=== PATIENT | female | born 1945 | race Caucasian/White ===

== ENCOUNTER 2021-01-18 20:03 | Observation (INO) ==
[2021-01-18] MEDS ORDERED: SODIUM CHLORIDE 0.9% 1000ML 1,000 ML IV ONE (20:21)
[2021-01-18] MEDS ORDERED: CEFEPIME 2,000 MG/20 ML VIAL IV STA (20:21)
--- NOTE | 2021-01-18 20:26 | Emergency Department Note ---
History of Present Illness General Chief complaint: Fever Stated complaint: FEVER Time Seen by Provider: 01/18/21 20:11 Source: patient and family ( who is at the bedside) Mode of arrival: ambulatory Limitations: no limitations History of Present Illness Maximum Pain Intensity: 5 This patient is a 75-year-old female who comes in after having a high temperature up to 103 at home. She was seen at an urgent care center and sent here. Her temperature had come down without treatment to 101 at the urgent care center. She denies dysuria but she had some frequency and bilateral lower abdominal pain and left flank pain. No nausea or vomiting. No cough or shortness of breath. No chest pain. Minimal headache. No fall or trauma no rash she is on no blood thinner she had Covid vaccine x2. No lower extremity pain or swelling. Home Medications Medication Instructions Recorded Confirmed Type amlodipine 2.5 mg PO DAILY 09/09/19 01/18/21 History aspirin 81 mg PO DAILY 09/09/19 01/18/21 History atenolol 25 mg PO DAILY 09/09/19 01/18/21 History estradiol 2 g VAGINAL MOTH 09/09/19 01/18/21 History hydrochlorothiazide 25 mg PO MOWEFR 09/09/19 01/18/21 History hydrocortisone acetate 25 mg [place] AMHS PRN 09/09/19 01/18/21 History multivitamin [Multiple Vitamins] 1 tab PO DAILY 09/09/19 01/18/21 History naproxen 500 mg PO DAILY 09/09/19 01/18/21 History oxybutynin chloride 5 mg PO DAILY 09/09/19 01/18/21 History potassium chloride 20 meq PO DAILY 09/09/19 01/18/21 History atorvastatin 20 mg PO DAILY 01/18/21 01/18/21 History Allergies Allergy/AdvReac Type Severity Reaction Status Date / Time mayonnaise AdvReac Vomiting Unverified 01/18/21 21:47 FOOD AdvReac Vomiting Uncoded 01/18/21 21:47 Past Med/Surg History Medical History (Updated 01/19/21 @ 00:40 by Jaguar Farah MD) Cancer Social History Smoking Status: Never smoker Preferred Language: Armenian Feels Safe at Home: Yes Immunizations: Past medical historyhypercholesteremia, hypertension both which are treated. Denies diabetes or cardiac disease or pulmonary disease Family historymother of an ME in her 60s Social history she does not smoke or drink she lives locally with her who is at the bedside. She is followed by Dr. Santacruz at [facility] Review of Systems A total of 10 systems reviewed and were otherwise negative Physical Exam Vital Signs Vital Signs - 24 hr 01/18/21 20:07 01/18/21 22:16 01/18/21 22:53 Temperature 37.5 C Temperature Source Temporal Artery Scan Pulse Rate 100 H Pulse Rate [Finger] Respiratory Rate 18 18 18 Respiratory Effort / Characteristics Non-Labored Spontaneous Non-Labored Respiratory Depth Normal Respiratory Pattern Regular Blood Pressure 104/73 Blood Pressure [Left Arm] 98/55 L 100/56 L Blood Pressure Mean 83 Blood Pressure Mean [Left Arm] 69 70 Blood Pressure Position Sitting Pulse Oximetry 95 97 93 Oxygen Delivery Method Room Air Room Air Room Air Sepsis Recent Fever Within 48 Hours Yes Sepsis New/Unexplained Change in Mental Status No Sepsis Action Taken by Nursing No Action Required 01/18/21 22:55 01/19/21 00:24 Temperature Temperature Source Pulse Rate Pulse Rate [Finger] 81 Respiratory Rate 18 Respiratory Effort / Characteristics Non-Labored Non-Labored Respiratory Depth Normal Respiratory Pattern Regular Blood Pressure Blood Pressure [Left Arm] 108/56 L Blood Pressure Mean Blood Pressure Mean [Left Arm] 73 Blood Pressure Position Pulse Oximetry 100 Oxygen Delivery Method Room Air Sepsis Recent Fever Within 48 Hours Sepsis New/Unexplained Change in Mental Status Sepsis Action Taken by Nursing General: Well developed well nourished older female who appears in no acute distress, breathing comfortably on room air. Normal speech HEENT: Normal cephalic atraumatic. Pupils are equal round and reactive to light. Extraocular movements are intact. Oropharynx is pink with moist mucous membranes. No swelling of the mouth lips or tongue. Neck: Supple with a midline trachea. No meningeal signs or stiffness, no JVD or bruits. No Stridor. Chest: Clear to auscultation bilaterally. No wheezes or rhonchi. No increased work of breathing. Heart: Regular rate and rhythm without murmurs or gallops. Abdomen: Soft highly tender in the lower abdomen left greater than right, nondistended without rebound guarding or rigidity. Extremities: No cyanosis clubbing or edema. No calf tenderness or assymetry Spine/Back. Non tender to palpation. Mild CVA tenderness on the left Skin: Good turgor without rashes. Neurologic exam: Cranial nerves two through 12 are intact. Motor and sensation are intact and symmetrical throughout. Course Administered Medications Discontinued Medications Sodium Chloride (Nss 1000ml) 1,000 mls @ 999 mls/hr IV .Q1H1M ONE Stop: 01/18/21 21:21 Last Infusion: 01/18/21 21:58 Dose: 0 mls/hr Documented by: [id number] Admin: 01/18/21 20:58 Dose: 999 mls/hr Documented by: [id number] Cefepime HCl (Maxipime) 2,000 mg in 20 mls @ 5 mls/min IV NOW STA; Protocol Stop: 01/18/21 20:24 Last Admin: 01/18/21 20:58 Dose: 5 mls/min Documented by: [id number] Sodium Chloride (Nss) 500 mls @ 999 mls/hr IV .Q31M ONE Stop: 01/18/21 22:44 Last Infusion: 01/18/21 23:23 Dose: 0 mls/hr Documented by: [id number] Admin: 01/18/21 22:52 Dose: 999 mls/hr Documented by: [id number] Critical Care Time Critical Care Time: Yes Total Critical Care Time: 30 Due to the patient's concern for sepsis with a high fever, abdominal and back pain, need for IV fluids, IV antibiotics, consultation and frequent reassessment, I have personally spent greater than 30 minutes of critical care time in the direct management of this patient. This includes bedside care, interpretation of diagnostic studies, and testing, discussion with consultants, patient, and family members, and other required patient management activities. This 30 minutes is in excess of all separately billable procedures. Medical Decision Making Differential Diagnosis Sepsis, pyelonephritis, diverticulitis, Covid, UTI, dehydration, pneumonia, electrolyte or metabolic abnormality Medical Records Attestation: I reviewed the patient's medical records. Home Medications Current Medication List: was personally reviewed by me Laboratory Data Attestation: I reviewed the patient's lab results. Result diagrams: 01/18/21 20:31 01/18/21 20:31 Lab Results 01/18/21 01/18/21 01/18/21 Range/Units 20:31 20:31 20:31 WBC 12.75 H (4.8-10.8) K/uL RBC 4.06 L (4.2-5.4) M/uL Hgb 12.9 (12.0-16.0) g/dL Hct 38.7 (37-47) % MCV 95.3 (80-100) fL MCH 31.8 (25-34) pg MCHC 33.3 (32-36) g/dL RDW Std Deviation 50.4 H (36.4-46.3) fL RDW Coeff of Vidhya 14.4 (11.5-14.5) % Plt Count 221 (130-400) K/uL MPV 10.3 (7.4-10.4) fL Immature Gran % (Auto) 0.5 % Neut % (Auto) 82.0 % Lymph % (Auto) 5.7 % [place] % (Auto) 11.5 % Eos % (Auto) 0.2 % Baso % (Auto) 0.1 % Neut # (Auto) 10.46 H (1.4-6.5) K/uL Lymph # (Auto) 0.73 L (1.2-3.4) K/uL [place] # (Auto) 1.47 H (0.11-0.59) K/uL Eos # (Auto) 0.02 (0-0.5) K/uL Baso # (Auto) 0.01 (0-0.2) K/uL Immature Gran # (Auto) 0.06 H (0.00-0.02) K/uL PT 10.5 (9.0-12.0) Seconds INR 1.0 (0.9-1.1) APTT 26.2 (21.0-31.0) Seconds PTT Ratio 1.0 Sodium 138 (136-145) mmol/L Potassium 3.5 (3.5-5.1) mmol/L Chloride 105 (98-107) mmol/L Carbon Dioxide 27 (21-32) mmol/L Anion Gap 6.0 (3-11) BUN 13 (7-18) mg/dl Creatinine 0.85 (0.6-1.2) mg/dl Est Cr Clr Drug Dosing 45.9 ml/min Est GFR ( Amer) 78.2 ml/min Est GFR (Non-Af Amer) 67.5 ml/min BUN/Creatinine Ratio 15.6 (10-20) Glucose 122 H (70-99) mg/dl Lactate (0.4-2.0) mmol/L Calcium 8.2 L (8.5-10.1) mg/dl Magnesium 2.0 (1.8-2.4) mg/dl Total Bilirubin 0.8 (0.2-1) mg/dl AST 36 (15-37) U/L ALT 45 (12-78) U/L Alkaline Phosphatase 89 (45-117) U/L Total Protein 7.2 (6.4-8.2) gm/dl Albumin 3.6 (3.4-5.0) gm/dl Globulin 3.6 (2.5-4.0) gm/dl Albumin/Globulin Ratio 1.0 (0.9-2) Urine Color Urine Appearance (Clear) Urine pH (4.5-7.5) Ur Specific [place] (1.000-1.030) Urine Protein (Negative) Urine Glucose (UA) (Negative) Urine Ketones (Negative) Urine Blood (Negative) Urine Nitrite (Negative) Urine Bilirubin (Negative) Urine Urobilinogen (Negative) Ur Leukocyte Esterase (Negative) Urine WBC (Auto) (0-5) /hpf Urine RBC (Auto) (0-4) /hpf U Hyaline Cast (Auto) (0-5) /lpf U Epithel Cells (Auto) (0-5) /lpf Urine Bacteria (Auto) (Negative) COVID-19 Eval Order SARS-CoV-2 (PCR) (Negative) 01/18/21 01/18/21 01/18/21 Range/Units 20:31 20:44 20:44 WBC (4.8-10.8) K/uL RBC (4.2-5.4) M/uL Hgb (12.0-16.0) g/dL Hct (37-47) % MCV (80-100) fL MCH (25-34) pg MCHC (32-36) g/dL RDW Std Deviation (36.4-46.3) fL RDW Coeff of Vidhya (11.5-14.5) % Plt Count (130-400) K/uL MPV (7.4-10.4) fL Immature Gran % (Auto) % Neut % (Auto) % Lymph % (Auto) % [place] % (Auto) % Eos % (Auto) % Baso % (Auto) % Neut # (Auto) (1.4-6.5) K/uL Lymph # (Auto) (1.2-3.4) K/uL [place] # (Auto) (0.11-0.59) K/uL Eos # (Auto) (0-0.5) K/uL Baso # (Auto) (0-0.2) K/uL Immature Gran # (Auto) (0.00-0.02) K/uL PT (9.0-12.0) Seconds INR (0.9-1.1) APTT (21.0-31.0) Seconds PTT Ratio Sodium (136-145) mmol/L Potassium (3.5-5.1) mmol/L Chloride (98-107) mmol/L Carbon Dioxide (21-32) mmol/L Anion Gap (3-11) BUN (7-18) mg/dl Creatinine (0.6-1.2) mg/dl Est Cr Clr Drug Dosing ml/min Est GFR ( Amer) ml/min Est GFR (Non-Af Amer) ml/min BUN/Creatinine Ratio (10-20) Glucose (70-99) mg/dl Lactate 1.4 (0.4-2.0) mmol/L Calcium (8.5-10.1) mg/dl Magnesium (1.8-2.4) mg/dl Total Bilirubin (0.2-1) mg/dl AST (15-37) U/L ALT (12-78) U/L Alkaline Phosphatase (45-117) U/L Total Protein (6.4-8.2) gm/dl Albumin (3.4-5.0) gm/dl Globulin (2.5-4.0) gm/dl Albumin/Globulin Ratio (0.9-2) Urine Color Yellow Urine Appearance Cloudy A (Clear) Urine pH 5.5 (4.5-7.5) Ur Specific [place] 1.014 (1.000-1.030) Urine Protein 1+ H (Negative) Urine Glucose (UA) Negative (Negative) Urine Ketones Negative (Negative) Urine Blood 1+ H (Negative) Urine Nitrite Positive A (Negative) Urine Bilirubin Negative (Negative) Urine Urobilinogen Negative (Negative) Ur Leukocyte Esterase 2+ H (Negative) Urine WBC (Auto) >30 H (0-5) /hpf Urine RBC (Auto) 5-10 H (0-4) /hpf U Hyaline Cast (Auto) 5-10 H (0-5) /lpf U Epithel Cells (Auto) 10-20 H (0-5) /lpf Urine Bacteria (Auto) 4+ H (Negative) COVID-19 Eval [address] Covid19 at [facility] SARS-CoV-2 (PCR) (Negative) 01/18/21 Range/Units 20:44 WBC (4.8-10.8) K/uL RBC (4.2-5.4) M/uL Hgb (12.0-16.0) g/dL Hct (37-47) % MCV (80-100) fL MCH (25-34) pg MCHC (32-36) g/dL RDW Std Deviation (36.4-46.3) fL RDW Coeff of Vidhya (11.5-14.5) % Plt Count (130-400) K/uL MPV (7.4-10.4) fL Immature Gran % (Auto) % Neut % (Auto) % Lymph % (Auto) % [place] % (Auto) % Eos % (Auto) % Baso % (Auto) % Neut # (Auto) (1.4-6.5) K/uL Lymph # (Auto) (1.2-3.4) K/uL [place] # (Auto) (0.11-0.59) K/uL Eos # (Auto) (0-0.5) K/uL Baso # (Auto) (0-0.2) K/uL Immature Gran # (Auto) (0.00-0.02) K/uL PT (9.0-12.0) Seconds INR (0.9-1.1) APTT (21.0-31.0) Seconds PTT Ratio Sodium (136-145) mmol/L Potassium (3.5-5.1) mmol/L Chloride (98-107) mmol/L Carbon Dioxide (21-32) mmol/L Anion Gap (3-11) BUN (7-18) mg/dl Creatinine (0.6-1.2) mg/dl Est Cr Clr Drug Dosing ml/min Est GFR ( Amer) ml/min Est GFR (Non-Af Amer) ml/min BUN/Creatinine Ratio (10-20) Glucose (70-99) mg/dl Lactate (0.4-2.0) mmol/L Calcium (8.5-10.1) mg/dl Magnesium (1.8-2.4) mg/dl Total Bilirubin (0.2-1) mg/dl AST (15-37) U/L ALT (12-78) U/L Alkaline Phosphatase (45-117) U/L Total Protein (6.4-8.2) gm/dl Albumin (3.4-5.0) gm/dl Globulin (2.5-4.0) gm/dl Albumin/Globulin Ratio (0.9-2) Urine Color Urine Appearance (Clear) Urine pH (4.5-7.5) Ur Specific [place] (1.000-1.030) Urine Protein (Negative) Urine Glucose (UA) (Negative) Urine Ketones (Negative) Urine Blood (Negative) Urine Nitrite (Negative) Urine Bilirubin (Negative) Urine Urobilinogen (Negative) Ur Leukocyte Esterase (Negative) Urine WBC (Auto) (0-5) /hpf Urine RBC (Auto) (0-4) /hpf U Hyaline Cast (Auto) (0-5) /lpf U Epithel Cells (Auto) (0-5) /lpf Urine Bacteria (Auto) (Negative) COVID-19 Eval Order SARS-CoV-2 (PCR) NEGATIVE (Negative) Imaging Data Attestation: I personally reviewed and interpreted this imaging study as follows : My Impression: Chest x-rayno acute infiltrate, failure, pneumothorax Radiologist's Impression: Chest X-Ray 01/18/21 20:21 XR chest 1V portable HISTORY: 75 years-old Female SEPSIS acute sepsis COMPARISON: Chest radiograph 09/09/2019 TECHNIQUE: Portable AP view of the chest FINDINGS: Cardiomediastinal and hilar silhouettes are within normal limits. No pneumothorax, pleural effusion, airspace consolidation or overt edema. Degenerative changes of the shoulders and spine. IMPRESSION: No acute process. ACT 112: Negative or not required by law. The above report was generated using voice recognition software. It may contain grammatical, syntax or spelling errors. Electronically signed by: Duke Cesar M.D. 01/18/2021 9:06 PM Abdomen/Pelvis CT 01/18/21 20:[address] WITHOUT CONTRAST CT DOSE: 235.35 mGy.cm HISTORY: Acute fever with left lower quadrant abdominal pain fever, llq and left flank pain TECHNIQUE: Multiaxial CT images of the abdomen and pelvis were performed without contrast. A dose lowering technique was utilized adhering to the principles of ALARA. COMPARISON STUDY: CT abdomen and pelvis 09/09/2019 FINDINGS: The imaged inferior cardiac chambers are unremarkable. 9 mm groundglass nodular opacity of the medial basal segment right lower lobe on image 17 series 3. In retrospect this appears similar to the comparison study. Lung bases are otherwise generally clear. There is no pneumatosis or pneumoperitoneum. Limited evaluation of the solid abdominal organs without the use of IV contrast. Limitations of the study the spleen, mildly atrophic pancreas, adrenal glands and gallbladder are unremarkable. There are 3 cysts of the liver redemonstrated measuring up to approximately 1.8 cm. Mild hepatomegaly. Unremarkable left kidney. There is mild right-sided hydronephrosis with asymmetric perinephric and periureteral stranding. Mild urothelial thickening of the right renal collecting system. Unchanged vascular calcifications of the pelvis. No ureteral or ureteral calculi identified. Urinary bladder wall thickening with partial distention. Moderate perivesicular stranding. Pessary within the vagina. Uterus is unremarkable. Atherosclerosis of the aorta. No adenopathy. Mild wall thickening of the distal esophagus. There is no bowel obstruction or bowel wall thickening. Moderate fecal retention. The visualized appendix appears noninflamed. Unremarkable soft tissues. Lumbar dextroscoliosis. Degenerative changes of the spine, pelvis and hips. IMPRESSION: 1. No bowel obstruction or bowel wall thickening. Noninflamed appendix. 2. Mild right-sided hydronephrosis with urothelial thickening and moderate perinephric stranding. No urolith identified. Findings may be secondary to recently passed calculus versus ascending infection. 3. Mild urinary bladder wall thickening. Correlate with urinalysis to exclude c ystitis 4. 9 mm groundglass nodule of the basal right lower lobe. A one-year follow-up chest CT is recommended. 5. Additional findings as above. ACT 112: Negative or not required by law. The above report was generated using voice recognition software. It may contain grammatical, syntax or spelling errors. Electronically signed by: Duke Cesar M.D. 01/18/2021 9:45 PM ECG Data Attestation: I personally reviewed and interpreted this ECG as follows: Indication: + weakness and + other (Sepsis) Rate (beats per minute): 79 Rhythm: + normal sinus ECG Intervals/blocks: + Incomplete right bundle branch block, + Prolonged QT and + Normal [place] ECG [place]: + Normal ECG ST segments: + Normal ST segments and + T-wave inversions (Anterior/laterally) ECG Findings: no PACs and no PVCs Comparison ECG Date: from (September 09, 2019 ) Change: the following changes noted (T waves are inverted laterally) MDM Narrative This patient comes in as described above. She was placed on a tire builder operator in room a 9. She is here for fever abdominal and back pain. She had a full sepsis work-up ordered which included multiple blood test including blood cultures and lactic acid as well as urinalysis and culture. She was hydrated with IV normal saline and given empiric antibiotics initially with cefepime 2 g IV. She was placed on a tire builder operator. I did also order CAT scan of the abdomen and pelvis without contrast to rule out obstructive uropathy diverticulitis and other potential etiologies for her symptoms. CAT scan does reveal some inflammation of the kidney there is no obstructing stone. It is most likely consistent with an infection. Urinalysis does suggest infection as well. She does have an elevated white count of 12 but her lactic acid is not elevated. She is no sick electrolyte or metabolic abnormalities. Covid testing was negative. She has no findings on chest x-ray to suggest congestive heart failure pneumonia or pneumothorax. She did receive an additional 500 cc IV bolus which puts her at approximately 30/kg after receiving the first liter. I did consult Dr. Guan to see her in the ER for admission IV antibiotics and IV fluids and further treatment and evaluation. Continuous cardiac monitoring: Orders placed in EMR for continuous cardiac monitoring. Upon my interpretation, she was noted to be in normal sinus rhythm with a rate of 80 Impression & Plan Sepsis, Acute pyelonephritis, Lab test negative for COVID-19 virus, HTN (hypertension) Discharge Plan Visit Data Chief Complaint: Fever Stated Complaint: FEVER ED Provider: Jaguar Farah Discharge Problem: Sepsis, Acute pyelonephritis, Lab test negative for COVID-19 virus, HTN (hypertension) Forms Stand Alone Forms: My [facility] [employer] Prescriptions Prescriptions: No Action amlodipine 2.5 mg tablet 2.5 mg PO DAILY RF: 0 aspirin 81 mg Tablet,Delayed Release (Dr/Ec) 81 mg PO DAILY RF: 0 atenolol 25 mg tablet 25 mg PO DAILY RF: 0 estradiol 0.01 % (0.1 mg/gram) cream 2 g VAGINAL MOTH RF: 0 hydrochlorothiazide 25 mg tablet 25 mg PO MOWEFR RF: 0 hydrocortisone acetate 25 mg suppository 25 mg [place] AMHS PRN (Reason: Hemorrhoids) RF: 0 multivitamin [Multiple Vitamins] Tablet 1 tab PO DAILY RF: 0 oxybutynin chloride 5 mg tablet extended release 24hr 5 mg PO DAILY RF: 0 potassium chloride 20 mEq tablet,ER particles/crystals 20 meq PO DAILY RF: 0 naproxen 500 mg tablet 500 mg PO DAILY RF: 0 atorvastatin 20 mg tablet 20 mg PO DAILY RF: 0 Discharge Problem: Sepsis Qualifiers: Sepsis type: sepsis due to unspecified organism Sepsis acute organ dysfunction status: unspecified Qualified Code(s): A41.9 - Sepsis, unspecified organism HTN (hypertension) Qualifiers: Hypertension type: unspecified Qualified Code(s): I10 - Essential (primary) hypertension
[2021-01-18 20:53] LABS: Basophils # (auto) 0.01 K/uL (0-0.2); Basophils % (auto) 0.1 %; Eosinophils # (auto) 0.02 K/uL (0-0.5); Eosinophils % (auto) 0.2 %; Hematocrit (blood only) 38.7 % (37-47); Hemoglobin 12.9 g/dL (12.0-16.0); Immature Granulocytes # (auto) 0.06 K/uL (0.00-0.02); Immature Granulocytes % (auto) 0.5 %; Lymphocytes # (auto) 0.73 K/uL (1.2-3.4); Lymphocytes % (auto) 5.7 %; Mean Corpuscular Hemoglobin 31.8 pg (25-34); Mean Corpuscular Hgb Conc 33.3 g/dL (32-36); Mean Corpuscular Volume 95.3 fL (80-100); Mean Platelet Volume 10.3 fL (7.4-10.4); Monocytes # (auto) 1.47 K/uL (0.11-0.59); Monocytes % (auto) 11.5 %; Neutrophils # (auto) 10.46 K/uL (1.4-6.5); Platelet Count 221 K/uL (130-400); RDW Coefficient of Variation 14.4 % (11.5-14.5); RDW Standard Deviation 50.4 fL (36.4-46.3); Red Blood Count 4.06 M/uL (4.2-5.4); White Blood Count 12.75 K/uL (4.8-10.8)
[2021-01-18 21:03] LABS: Partial Thromboplastin Time 26.2 Seconds (21.0-31.0); Prothrombin Time 10.5 Seconds (9.0-12.0)
--- NOTE | 2021-01-18 21:07 | XRay Report ---
XR chest 1V portable HISTORY: 75 years-old Female SEPSIS acute sepsis COMPARISON: Chest radiograph 09/09/2019 TECHNIQUE: Portable AP view of the chest FINDINGS: Cardiomediastinal and hilar silhouettes are within normal limits. No pneumothorax, pleural effusion, airspace consolidation or overt edema. Degenerative changes of the shoulders and spine. IMPRESSION: No acute process. ACT 112: Negative or not required by law. The above report was generated using voice recognition software. It may contain grammatical, syntax o r spelling errors. Electronically signed by: Duke Cesar M.D. 01/18/2021 9:06 PM
[2021-01-18 21:12] LABS: Albumin Level 3.6 gm/dl (3.4-5.0); BUN Creatinine Ratio 15.6 (10-20); Calcium 8.2 mg/dl (8.5-10.1); Creatinine Clr Calc Pharmacy 45.9 ml/min; Est GFR (African American) 78.2 ml/min; Est GFR (Non-African American) 67.5 ml/min; Potassium 3.5 mmol/L (3.5-5.1)
[2021-01-18 21:15] LABS: Bilirubin,Total 0.8 mg/dl (0.2-1); Globulin 3.6 gm/dl (2.5-4.0); Total Protein 7.2 gm/dl (6.4-8.2)
[2021-01-18 21:37] LABS: Appearance Urine Cloudy (Clear); Bacteria Urine Automated 4+ (Negative); Bilirubin Urine Negative (Negative); Blood Urine 1+ (Negative); Color Urine Yellow; Glucose Urine UA Negative (Negative); Ketones Urine Negative (Negative); Leukocyte Esterase Urine 2+ (Negative); Nitrite Urine Positive (Negative); Protein Urine 1+ (Negative); Specific Gravity Urine 1.014 (1.000-1.030); Urobilinogen Urine Negative (Negative); WBC Urine Automated >30 /hpf (0-5); pH Urine 5.5 (4.5-7.5)
--- NOTE | 2021-01-18 21:46 | CT Scan Report ---
ABDOMEN AND PELVIS CT WITHOUT CONTRAST CT DOSE: 235.35 mGy.cm HISTORY: Acute fever with left lower quadrant abdominal pain fever, llq and left flank pain TECHNIQUE: Multiaxial CT images of the abdomen and pelvis were performed without contrast. A dose lo wering technique was utilized adhering to the principles of ALARA. COMPARISON STUDY: CT abdomen and pelvis 09/09/2019 FINDINGS: The imaged inferior cardiac chambers are unremarkable. 9 mm groundglass nodular opacity of the medial basal segment right lower lobe on image 17 series 3. In retrospect this appears similar to the mathtew rison study. Lung bases are otherwise generally clear. There is no pneumatosis or pneumoperitoneum. L imited evaluation of the solid abdominal organs without the use of IV contrast. Limitations of the st udy the spleen, mildly atrophic pancreas, adrenal glands and gallbladder are unremarkable. There are 3 cysts of the liver redemonstrated measuring up to approximately 1.8 cm. Mild hepatomegaly. Unremarkable left kidney. There is mild right-sided hydronephrosis with asymmetric perinephric and pe riureteral stranding. Mild urothelial thickening of the right renal collecting system. Unchanged vasc ular calcifications of the pelvis. No ureteral or ureteral calculi identified. Urinary bladder wall t hickening with partial distention. Moderate perivesicular stranding. Pessary within the vagina. Uteru s is unremarkable. Atherosclerosis of the aorta. No adenopathy. Mild wall thickening of the distal esophagus. There is no bowel obstruction or bowel wall thickening. Moderate fecal retention. The visualized appendix appears noninflamed. Unremarkable soft tissues. Cassie mbar dextroscoliosis. Degenerative changes of the spine, pelvis and hips. IMPRESSION: 1. No bowel obstruction or bowel wall thickening. Noninflamed appendix. 2. Mild right-sided hydronephrosis with urothelial thickening and moderate perinephric stranding. No urolith identified. Findings may be secondary to recently passed calculus versus ascending infection. 3. Mild urinary bladder wall thickening. Correlate with urinalysis to exclude cystitis 4. 9 mm groundglass nodule of the basal right lower lobe. A one-year follow-up chest CT is recommende d. 5. Additional findings as above. ACT 112: Negative or not required by law. The above report was generated using voice recognition software. It may contain grammatical, syntax o r spelling errors. Electronically signed by: Duke Cesar M.D. 01/18/2021 9:45 PM
[2021-01-18] MEDS ORDERED: SODIUM CHLORIDE 0.9% 500 ML IV ONE (22:14)
--- NOTE | 2021-01-19 02:30 | History and Physical Report ---
DATE OF ADMISSION: 01/19/2021. CHIEF COMPLAINT: Fever and flank pain. HISTORY OF PRESENT ILLNESS: This is a 75-year-old female with past medical history significant for hyperlipidemia, hypertension, CAD, external hemorrhoids, GERD, rectocele, stress incontinence, cystocele with uterine prolapse, presence of pessary, restless legs syndrome, primary osteoarthritis involving multiple joints. The patient lives with her , walks without any support. The patient developed a fever to 103 degrees at home and also had flank pain and abdominal discomfort and feeling chills, so she came here and she has increased frequency of urination, but no burning micturition, no blood in the urine. Normal bowel movements. No nausea, no abdominal pain, no chest pain, no shortness of breath, no cough. Has a mild headache. No blurred visions, no earache, no runny nose. She did not eat anything today since the morning. Appetite is down today. ALLERGIES: FOOD AND MAYONNAISE. PAST MEDICAL HISTORY: As mentioned above. PAST SURGICAL HISTORY: Ligation of oviduct. MEDICATIONS: The patient is on amlodipine 2.5 mg p.o. daily; aspirin 81 mg p.o. daily; atenolol 25 mg p.o. daily; atorvastatin 20 mg p.o. daily; estradiol 2 g vaginal Thursday and ; hydrochlorothiazide 25 mg p.o. on Thursday, Thursday and Thursday; hydrocortisone 25 mg per rectal b.i.d. p.r.n.; multivitamins 1 tablet daily; naproxen 500 mg p.o. daily; oxybutynin 5 mg p.o. daily; potassium chloride 20 mEq p.o. daily. FAMILY HISTORY: Significant for father had diabetes, heart disorder; mother has heart disorder; sister has high cholesterol. SOCIAL HISTORY: , no smoking, no alcohol, no drug use. REVIEW OF SYSTEMS: As per HPI. Rest of the review of systems is negative. PHYSICAL EXAMINATION: GENERAL: The patient is moderately build, not in acute distress. VITAL SIGNS: Temperature 37.5, pulse 81, respiratory rate 18, blood pressure 108/56, oxygen 100% on room air. HEENT: Pupils equal, round and reactive to light. Oral mucosa moist. NECK: No JVD, no neck masses. CARDIOVASCULAR: S1 and S2 heard. Regular rate and rhythm. No murmur, no gallop. RESPIRATORY SYSTEM: Normal AP diameter. No accessory muscle use. No wheezing, no crackles. ABDOMEN: Soft, bowel sounds present, nontender, no distention. No CVA tenderness. No guarding, no rigidity. CENTRAL NERVOUS SYSTEM: Cranial nerves II-XII grossly intact, nonfocal. EXTREMITIES: No edema, no erythema. LABORATORY DATA: WBC 12.7, hemoglobin 12.9, hematocrit 38.7, platelets 221. PT 10.5, INR 1, APTT 26.2. Sodium 138, potassium 3.5, chloride 105, bicarbonate 27, BUN 13, creatinine 0.8, serum glucose 122. Lactate 1.4, calcium 8.2, magnesium 2, total bilirubin 0.8, AST 36, ALT 45, alkaline phosphatase 89. Urinalysis, positive for urine nitrite and leukocyte esterase and +4 bacteria. SARS-CoV-2 PCR negative. IMAGING DATA: Chest x-ray, no acute process. CT of abdomen and pelvis shows mild right-sided hydronephrosis with urothelial thickening and moderate perinephric stranding. No urolith identified. Findings may be secondary to recently passed calculus or infection. Mild urinary bladder wall thickening, correlate with urinalysis to exclude cystitis. A 9 mm ground-glass nodule of the right basal lower lobe. In one year, followup chest CT is recommended. EKG: Normal sinus rhythm at a rate of 79, incomplete right bundle branch block seen, QTc of 486. Some T waves within lateral leads. ASSESSMENT AND PLAN: This is a 75-year-old female who presents with fever and found to have possible pyelonephritis. 1. Pyelonephritis with high fever at home and flank pain at home: Currently no CVA tenderness. CT scan is showing right-sided hydronephrosis and probably cystitis. UA was positive. ER empirically started on cefepime, which will continue. Follow the cultures. Continue IV fluids. Monitor in the med tele. 2. A 9 mm ground-glass right lower lobe lung nodule. Needs followup CT scan as recommended. 3. History of hypertension: Continue her home medication of atenolol, amlodipine. Holding her hydrochlorothiazide for now. Monitor the blood pressure. 4. History of hyperlipidemia: Continue statin. 5. History of stress incontinence: Currently on Ditropan. 6. History of coronary artery disease: On aspirin, statin, and beta toshia. We will monitor. 7. Deep venous thrombosis prophylaxis: Sequential compression devices for now. Will place on heparin subcutaneous. DISPOSITION: Closely monitor in the med rec. PT/OT prior to discharge. Social service to help with discharge planning. Job ID: [id number] NAN
[2021-01-19] MEDS ORDERED: NITROGLYCERIN SL 0.4 MG/TAB TAB SL PRN (03:41)
[2021-01-19] MEDS ORDERED: ONDANSETRON INJ 2 MG/ML 2 ML VIAL IV PRN (03:41)
[2021-01-19] MEDS ORDERED: ACETAMINOPHEN 325 MG TAB PO PRN (03:41)
[2021-01-19] MEDS ORDERED: CEFEPIME CONSULT ACTIVE PRN (03:55)
[2021-01-19] MEDS ORDERED: SODIUM CHLORIDE 0.9% 1000ML 1,000 ML IV SCH (04:00)
[2021-01-19 06:22] LABS: Basophils # (auto) 0.01 K/uL (0-0.2); Basophils % (auto) 0.1 %; Eosinophils # (auto) 0.01 K/uL (0-0.5); Eosinophils % (auto) 0.1 %; Hematocrit (blood only) 32.5 % (37-47); Hemoglobin 10.7 g/dL (12.0-16.0); Immature Granulocytes # (auto) 0.04 K/uL (0.00-0.02); Immature Granulocytes % (auto) 0.3 %; Lymphocytes % (auto) 11.4 %; Mean Corpuscular Hemoglobin 31.9 pg (25-34); Mean Corpuscular Hgb Conc 32.9 g/dL (32-36); Monocytes # (auto) 1.41 K/uL (0.11-0.59); Monocytes % (auto) 10.7 %; Neutrophils # (auto) 10.22 K/uL (1.4-6.5); Neutrophils % (auto) 77.4 %; Platelet Count 215 K/uL (130-400); RDW Coefficient of Variation 14.7 % (11.5-14.5); RDW Standard Deviation 51.9 fL (36.4-46.3); Red Blood Count 3.35 M/uL (4.2-5.4); White Blood Count 13.19 K/uL (4.8-10.8)
[2021-01-19 06:50] LABS: BUN Creatinine Ratio 18.6 (10-20); Calcium 7.6 mg/dl (8.5-10.1); Creatinine Clr Calc Pharmacy 52.8 ml/min; Est GFR (African American) 92.5 ml/min; Est GFR (Non-African American) 79.8 ml/min; Magnesium 1.9 mg/dl (1.8-2.4); Potassium 3.3 mmol/L (3.5-5.1)
[2021-01-19] MEDS: CEFEPIME 1,000 MG in SYRINGE 0 ML IV SCH ×2 (08:26→20:35)
[2021-01-19] MEDS: ASPIRIN 81 MG ECTAB PO SCH (08:27)
[2021-01-19] MEDS: HEPARIN SOD 5,000 UNIT/0.5 ML VIAL SQ SCH ×2 (08:27→20:35)
[2021-01-19] MEDS: ATORVASTATIN 20 MG TAB PO SCH (08:27)
[2021-01-19] MEDS: MULTIVITAMIN TAB PO SCH (08:27)
[2021-01-19] MEDS: POTASSIUM CHLORIDE CRTAB 20 MEQ TABCR PO SCH (08:28)
[2021-01-19] MEDS: OXYBUTYNIN CHLORIDE XL 5 MG TABCR PO SCH (08:28)
--- NOTE | 2021-01-19 08:42 | Hospitalist Progress Note ---
Date of Service January 19, 2021 Assessment & Plan (1) Acute pyelonephritis: Complicated UTI with pyelonephritis: Admitted with a high fever, flank pain bilateral at home UA grossly positive, leukocytosis 12 K-[address] abdomen pelvis: CT scan is showing right-sided hydronephrosis and probably cystitis. UA was positive. ER empirically started on cefepime, which will continue. Follow the cultures. Continue IV fluids. Monitor in the med tele. No evidence of sepsis Has been afebrile, symptomatically improved Continue IV cefepime, will follow urine culture Hypotension: Stable secondary to dehydration, UTI Continue with IV fluids, patient denies of any dizzy spell or lightheadedness Diuretics kept on hold, hold Norvasc/atenolol for SBP less than 100 Monitoring telemetry Incidental finding of lung nodule A 9 mm ground-glass right lower lobe lung nodule. Needs followup CT scan in 1 year History of hyperlipidemia: Continue statin. History of stress incontinence: Currently on Ditropan. Denies any urinary symptoms: No dysuria or incontinence History of coronary artery disease: Symptoms of chest pain shortness of breath Stable on aspirin, statin, and beta toshia. Deep venous thrombosis prophylaxis: Subcu heparin Full code Disposition: Lives at home with independent in ADLs Expected to be discharged home when medically stable. updated over phone Admission and Anticipated Discharge Date Admission Date: January 19, 2021 Subjective Follow-up visit for fever chills flank pain: UTI/pyelonephritis Patient seen in room 201 bed one, States she feels much better since yesterday, her bilateral flank pain has improved, does not have any chills, has been afebrile since admission Finished her breakfast, appetite still poor, no nausea or abdominal pain Did not had any loose bowel movement Very pleasant, able to sit up on the edge of the bed, no complaint of shortness of breath or chest discomfort Review of Systems Review of Systems: All systems reviewed & are unremarkable except as noted in Subjective Physical Exam Constitutional: WD/WN, vitals as above well developed (Very pleasant elderly female, currently comfortable conversing) and comfortable; no acute distress Eyes: PERRL, conjunctivae normal, anicteric sclerae ENMT: external ear and nose normal, oropharynx normal Neck: trachea midline, no thyromegaly Respiratory: normal respiratory effort, lungs clear to auscultation Cardiovascular: RRR, no murmur, no edema Gastrointestinal (Abdomen): Percussion/Palpation: abdomen soft; abdomen nontender (Does not have bilateral flank pain) Musculoskeletal: no cyanosis or clubbing, extremities motor strength 5/5 (Normal strength, no cyanosis or weakness) Skin: no rashes, warm and dry Neurologic: PERRL, EOMI, accommodation nl, no face palsy, no dysarthria Results & Data Results & Data ([facility]) Vital Signs (Past 12 Hours) Vital Signs Temp Pulse Pulse Resp BP Pulse Ox 01/19/21 07:15 37.3 C 70 20 90/46 L 96 01/19/21 07:00 71 01/19/21 05:22 37.7 C H 01/19/21 02:45 38.2 C H 80 18 113/60 98 01/19/21 00:24 81 18 108/56 L 100 01/18/21 22:53 18 100/56 L 93 01/18/21 22:16 18 98/55 L 97
[2021-01-19] MEDS ORDERED: POTASSIUM CHLORIDE CRTAB 20 MEQ TABCR PO SCH (09:00)
[2021-01-19] MEDS ORDERED: CEFEPIME 2,000 MG in SYRINGE 0 ML IV SCH (09:00)
[2021-01-19] MEDS ORDERED: amLODIPine BESYLATE 5 MG TAB PO SCH (09:00)
[2021-01-19] MEDS ORDERED: ATENOLOL 25 MG TABLET PO SCH (09:00)
--- NOTE | 2021-01-19 10:22 | Electrocardiogram Report ---
Test Reason : Blood Pressure : / mmHG Vent. Rate : 079 BPM Atrial Rate : 079 BPM P-R Int : 142 ms QRS Dur : 100 ms QT Int : 424 ms P-R-T Axes : 041 014 038 degrees QTc Int : 486 ms Normal sinus rhythm Incomplete right bundle branch block T wave abnormality, consider anterolateral ischemia Prolonged QT Abnormal ECG When compared with ECG of 09-SEP-2019 21:23, T wave inversion now evident in Lateral leads Confirmed by Fei Huerta ([id number]) on 01/19/2021 10:22:23 AM Referred By: Sheng Santacruz Confirmed By:Umesh Huerta
[2021-01-19] MEDS ORDERED: Nursing to Pharmacy Communication SCH ×2 (12:15)
[2021-01-20 06:37] LABS: Basophils # (auto) 0.02 K/uL (0-0.2); Basophils % (auto) 0.2 %; Eosinophils # (auto) 0.08 K/uL (0-0.5); Hematocrit (blood only) 33.9 % (37-47); Hemoglobin 11.2 g/dL (12.0-16.0); Immature Granulocytes # (auto) 0.02 K/uL (0.00-0.02); Immature Granulocytes % (auto) 0.2 %; Lymphocytes # (auto) 1.37 K/uL (1.2-3.4); Lymphocytes % (auto) 16.4 %; Mean Corpuscular Hemoglobin 31.5 pg (25-34); Mean Corpuscular Volume 95.5 fL (80-100); Mean Platelet Volume 10.5 fL (7.4-10.4); Monocytes # (auto) 0.82 K/uL (0.11-0.59); Monocytes % (auto) 9.8 %; Neutrophils # (auto) 6.04 K/uL (1.4-6.5); Neutrophils % (auto) 72.4 %; Platelet Count 209 K/uL (130-400); RDW Coefficient of Variation 14.7 % (11.5-14.5); RDW Standard Deviation 51.2 fL (36.4-46.3); Red Blood Count 3.55 M/uL (4.2-5.4); White Blood Count 8.35 K/uL (4.8-10.8)
[2021-01-20 06:55] LABS: BUN Creatinine Ratio 23.7 (10-20); Calcium 8.1 mg/dl (8.5-10.1); Creatinine Clr Calc Pharmacy 56.6 ml/min; Est GFR (African American) 99.4 ml/min; Est GFR (Non-African American) 85.8 ml/min; Potassium 3.7 mmol/L (3.5-5.1)
[2021-01-20] MEDS: CEFEPIME 1,000 MG in SYRINGE 0 ML IV SCH (08:37)
[2021-01-20] MEDS: HEPARIN SOD 5,000 UNIT/0.5 ML VIAL SQ SCH (08:37)
[2021-01-20] MEDS: ASPIRIN 81 MG ECTAB PO SCH (08:38)
[2021-01-20] MEDS: MULTIVITAMIN TAB PO SCH (08:38)
[2021-01-20] MEDS: POTASSIUM CHLORIDE CRTAB 20 MEQ TABCR PO SCH (08:38)
[2021-01-20] MEDS: OXYBUTYNIN CHLORIDE XL 5 MG TABCR PO SCH (08:38)
[2021-01-20] MEDS: ATORVASTATIN 20 MG TAB PO SCH (08:38)
[2021-01-20] MEDS ORDERED: ADVANCED PROBIOTIC 1250 MG CAPSULE PO SCH (12:00)
--- NOTE | 2021-01-20 13:07 | Hospitalist Progress Note ---
Date of Service January 20, 2021 Assessment & Plan (1) Acute pyelonephritis: Complicated UTI with pyelonephritis: Admitted with a high fever, flank pain bilateral at home and leukocytosis CT abdomen pelvis: CT scan is showing right-sided hydronephrosis and probably cystitis. UA was positive. ER empirically started on cefepime, which will continue. Follow the cultures. Continue IV fluids. Monitor in the med tele. No evidence of sepsis All symptoms has resolved, has been afebrile, normal white count, Urine culture shows E. coli pansensitive Will discontinue IV cefepime, changed to p.o. Keflex Needs 5 more days of treatment Patient is asked to take pafe-byi-[id number] probiotics to prevent loose stool/diarrhea while taking antibiotic Hypotension: Resolved, given IV fluids Stable secondary to dehydration, UTI Home blood pressure medication resumed Incidental finding of lung nodule A 9 mm ground-glass right lower lobe lung nodule. Needs followup CT scan in 1 year History of hyperlipidemia: Continue statin. History of stress incontinence: Currently on Ditropan. Denies any urinary symptoms: No dysuria or incontinence History of coronary artery disease: Symptoms of chest pain shortness of breath Stable on aspirin, statin, and beta toshia. Deep venous thrombosis prophylaxis: Subcu heparin Full code Disposition: Patient lives at home with independent in ADLs And clinically improved to baseline Stable to be discharged home today with p.o. antibiotic Admission and Anticipated Discharge Date Admission Date: January 19, 2021 Subjective Follow-up visit for fever chills flank pain: UTI/pyelonephritis Patient seen at bedside, very well spirited very pleasant smiling, feels like herself has been afebrile, hypotension resolved blood pressure stable Feels like herself, walked on the hallway without no balance issues No chills, no urinary symptoms No complaint of chest pain or shortness of breath or dyspnea on exertion Does report having 2 loose bowel movements today, possible secondary to antibiotics No abdominal pain or nausea, appetite has improved Review of Systems Review of Systems: All systems reviewed & are unremarkable except as noted in Subjective Physical Exam Constitutional: WD/WN, vitals as above well developed (Very pleasant elderly female, currently comfortable conversing) and comfortable; no acute distress Eyes: PERRL, conjunctivae normal, anicteric sclerae ENMT: external ear and nose normal, oropharynx normal Neck: trachea midline, no thyromegaly Respiratory: normal respiratory effort, lungs clear to auscultation Cardiovascular: RRR, no murmur, no edema Gastrointestinal (Abdomen): Percussion/Palpation: abdomen soft; abdomen nontender (Does not have bilateral flank pain) Musculoskeletal: no cyanosis or clubbing, extremities motor strength 5/5 (No rmal strength, no cyanosis or weakness) Skin: no rashes, warm and dry Neurologic: PERRL, EOMI, accommodation nl, no face palsy, no dysarthria Results & Data Results & Data ([facility]) Vital Signs (Past 12 Hours) Vital Signs Temp Pulse Pulse Resp BP Pulse Ox 01/20/21 07:19 79 01/20/21 07:16 36.8 C 87 20 125/67 97 01/20/21 04:00 37.7 C H 80 18 119/61 97
--- NOTE | 2021-01-20 13:23 | Discharge Summary ---
Date of Service January 20, 2021 Admission HPI Per Admitting Provider DICTATED BY: Curtis Guan MD DATE OF ADMISSION: 01/19/2021. CHIEF COMPLAINT: Fever and flank pain. HISTORY OF PRESENT ILLNESS: This is a 75-year-old female with past medical history significant for hyperlipidemia, hypertension, CAD, external hemorrhoids, GERD, rectocele, stress incontinence, cystocele with uterine prolapse, presence of pessary, restless legs syndrome, primary osteoarthritis involving multiple joints. The patient lives with her , walks without any support. The patient developed a fever to 103 degrees at home and also had flank pain and abdominal discomfort and feeling chills, so she came here and she has increased frequency of urination, but no burning micturition, no blood in the urine. Normal bowel movements. No nausea, no abdominal pain, no chest pain, no shortness of breath, no cough. Has a mild headache. No blurred visions, no earache, no runny nose. She did not eat anything today since the morning. Appetite is down today. Principal Diagnosis Urinary tract infection/acute pyelonephritis Hypotension/low blood pressure Incidental finding of lung nodule. Discharge Exam Constitutional WD/WN, vitals as above well developed (Very pleasant elderly female, currently comfortable conversing) and comfortable; no acute distress Eyes PERRL, conjunctivae normal, anicteric sclerae ENMT external ear and nose normal, oropharynx normal Neck trachea midline, no thyromegaly Respiratory normal respiratory effort, lungs clear to auscultation Cardiovascular RRR, no murmur, no edema Gastrointestinal (Abdomen) Percussion/Palpation: abdomen soft; abdomen nontender (Does not have bilateral flank pain) Musculoskeletal no cyanosis or clubbing, extremities motor strength 5/5 (Normal strength, no cyanosis or weakness) Skin no rashes, warm and dry Neurologic PERRL, EOMI, accommodation nl, no face palsy, no dysarthria Discharge Data Allergies Allergy/AdvReac Type Severity Reaction Status Date / Time mayonnaise AdvReac Vomiting Unverified 01/18/21 21:47 FOOD AdvReac Vomiting Uncoded 01/18/21 21:47 Consultations 01/18/21 22:19 ED Decision to Admit Stat Ordered Studies 01/18/21 20:26 CT abd pelvis wo con Stat Hospital Course (1) Acute pyelonephritis: Complicated UTI with pyelonephritis: Admitted with a high fever, flank pain bilateral at home and leukocytosis CT abdomen pelvis: CT scan is showing right-sided hydronephrosis and probably cystitis. UA was positive. ER empirically started on cefepime, which will continue. Follow the cultures. Continue IV fluids. Monitor in the med tele. No evidence of sepsis All symptoms has resolved, has been afebrile, normal white count, Urine culture shows E. coli pansensitive Will discontinue IV cefepime, changed to p.o. Keflex Needs 5 more days of treatment Patient is asked to take [id number] probiotics to prevent loose stool/diarrhea while taking antibiotic Hypotension: Resolved, given IV fluids Stable secondary to dehydration, UTI Home blood pressure medication resumed Incidental finding of lung nodule A 9 mm ground-glass right lower lobe lung nodule. Needs followup CT scan in 1 year History of hyperlipidemia: Continue statin. History of stress incontinence: Currently on Ditropan. Denies any urinary symptoms: No dysuria or incontinence History of coronary artery disease: Symptoms of chest pain shortness of breath Stable on aspirin, statin, and beta toshia. Deep venous thrombosis prophylaxis: Subcu heparin Full code Disposition: Patient lives at home with independent in ADLs And clinically improved to baseline Stable to be discharged home today with p.o. antibiotic Total Time Total Time Spent Total Time Spent (In Minutes): Approximately 35 minutes Total Time Includes: Examination of the Patient, Discharge Planning and Medication Reconciliation Discharge Plan Discharge Items Patient Disposition: Home - Self-Care Reason For Visit: FEVER Discharge Diagnosis: Urinary tract infection/acute pyelonephritis Hypotension/low blood pressure Incidental finding of lung nodule. Activity: Resume your previous activity Non-emergency contact: Primary Care Provider Call non-emergency contact if: you have any medication questions Follow-up/Referrals: Sheng Santacruz MD [Primary Care Provider] - (Hospital follow-up with family physician in a week) Diet: Heart Healthy Addtl Attending Provider Instructions: Please take all medications as instructed on discharge list below. It is recommended that you follow-up with your primary care physician within 1-2 weeks of hospital discharge to ensure you are still doing well. Please call if you have any questions or problems. 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 Needs followup CT scan in 1 year Pending Studies at Discharge: No Stand-Alone Forms: [facility] [employer], Smoking Cessation Medications and DC Order Prescriptions: New cephalexin 500 mg Capsule 500 mg PO BID 5 Days Qty: 10 RF: 0 Continued amlodipine 2.5 mg tablet 2.5 mg PO DAILY RF: 0 aspirin 81 mg Tablet,Delayed Release (Dr/Ec) 81 mg PO DAILY RF: 0 atenolol 25 mg tablet 25 mg PO DAILY RF: 0 estradiol 0.01 % (0.1 mg/gram) cream 2 g VAGINAL MOTH RF: 0 hydrochlorothiazide 25 mg tablet 25 mg PO MOWEFR RF: 0 hydrocortisone acetate 25 mg suppository 25 mg CO AMHS PRN (Reason: Hemorrhoids) RF: 0 multivitamin [Multiple Vitamins] Tablet 1 tab PO DAILY RF: 0 oxybutynin chloride 5 mg tablet extended release 24hr 5 mg PO DAILY RF: 0 potassium chloride 20 mEq tablet,ER particles/crystals 20 meq PO DAILY RF: 0 naproxen 500 mg tablet 500 mg PO DAILY RF: 0 atorvastatin 20 mg tablet 20 mg PO DAILY RF: 0 Discharge Orders: Discharge Order (Routine); Ordered 01/20/21 Ordered By: Negrita Morgan Admission Data Admit Date/Time: 01/19/21 01:02 Attending Provider: Negrita Morgan Admit Provider: Curtis Guan Primary Care Provider: Sheng Santacruz Other Providers: Curtis Guan
[2021-01-20] MEDS ORDERED: cephALEXin 500 MG CAP PO SCH (14:00)
[2021-01-20] MEDS ORDERED: CIPROFLOXACIN 500 MG TAB PO SCH (21:00)
[2021-01-21] MEDS ORDERED: NON-FORMULARY MEDICATION (Estradiol 0.01 % (0.1 mg/gram) cream) PV SCH (01:01)
== END 2021-01-20 14:50 | disposition home or self-care (01) ==
LOC: ED 20:03 → INTOOBSV 01-19 01:02 → 2E 01-19 01:02